=== PATIENT | male | born 1980 | race African-American/Black ===

== ENCOUNTER 2020-06-25 08:42 | Emergency (ER) | payer OTHER ==
[2020-06-25 08:53] VITALS: BP 120/81; PULSE 107; TEMP 98; BMI 28.2
== END 2020-06-25 10:01 | disposition home or self-care (01) ==
LOC: JERFT 08:42
DX: M54.16 Radiculopathy, lumbar region (principal)
CPT/HCPCS: 72100-TC-FY; 99283-25